=== PATIENT | male | born 1965 | race Caucasian/White ===

== ENCOUNTER 2017-11-19 16:43 | Emergency (ER) | payer OTHER ==
[~2017-11-19] VITALS: Ht 175.3 cm; Wt 81.6 kg
--- OUTSIDE RECORDS SUMMARY | 2017-11-19 16:46 | XMS REPORT | Clinical Summary ---
Author Author [facility] Address Unknown Phone Unavailable Care Team Providers Care Wire Strander Name Role Phone Asked, Pcp PCP Unavailable Allergies No Known Allergies Current Medications Prescription Sig. Disp. Refills Start End Date Status Date ibuprofen (ADVIL,MOTRIN) Take 200 mg by mouth Active 200 MG tablet every 6 (six) hours as needed for mild pain. traMADol (ULTRAM) 50 mg Take 1 tablet (50 mg 60 tablet 0 11/08/19 Active tablet total) by mouth every 4 18 19 (four) hours as needed for moderate pain. methocarbamol Take 1 tablet (750 mg 120 tablet 0 11/08/19 12/09/19 Active (ROBAXIN-750) 750 MG total) by mouth 4 (four) 18 18 tablet times a day for 30 days. naproxen (NAPROSYN) 500 Take 1 tablet (500 mg 60 tablet 0 11/14/19 11/14/19 Active MG tablet total) by mouth 2 (two) 18 19 times a day. cyclobenzaprine Take 1 tablet (10 mg 6 tablet 0 10/22/19 10/25/19 (FLEXERIL) 10 mg tablet total) by mouth 2 (two) 18 18 times a day as needed for muscle spasms for up to 3 days. acetaminophen-codeine Take 1-2 tablets by mouth 20 tablet 0 10/22/19 10/27/19 (TYLENOL WITH CODEINE #3) every 6 (six) hours as 18 18 300-30 mg per tablet needed for moderate pain for up to 5 days. CYCLOBENZAPRINE HCL Take by mouth. 11/07/19 Discontin (FLEXERIL ORAL) 18 ued predniSONE (DELTASONE) 10 Take 4 tablets (40 mg 16 tablet 0 11/07/19 11/11/19 mg tablet total) by mouth daily for 18 18 4 days. acetaminophen-codeine Take 1-2 tablets by mouth 20 tablet 0 11/07/19 11/12/19 (TYLENOL WITH CODEINE #3) every 6 (six) hours as 18 18 300-30 mg per tablet needed for moderate pain for up to 5 days. cyclobenzaprine Take 1 tablet (10 mg 9 tablet 0 11/07/19 11/10/19 (FLEXERIL) 10 mg tablet total) by mouth 2 (two) 18 18 times a day as needed for muscle spasms for up to 3 days. methylPREDNISolone Take 1 tablet (4 mg 21 tablet 0 11/08/19 Discontin (MEDROL DOSEPAK) 4 mg total) by mouth See Admin 18 18 ued tablet Instructions for 5 days. Use as directed by package instructions traMADol (ULTRAM) 50 mg Take 1 tablet (50 mg 60 tablet 0 11/08/19 Discontin tablet total) by mouth every 4 18 18 ued (four) hours as needed for moderate pain. methocarbamol Take 1 tablet (750 mg 120 tablet 0 11/08/19 11/08/19 Discontin (ROBAXIN-750) 750 MG total) by mouth 4 (four) 18 18 ued tablet times a day for 30 days. methylPREDNISolone Take 1 tablet (4 mg 21 tablet 0 11/08/19 (MEDROL DOSEPAK) 4 mg total) by mouth See Admin 18 18 tablet Instructions for 5 days. Use as directed by package instructions Active Problems Problem Noted Date Strain of lumbar region 11/08/2017 Thoracic myofascial strain 11/08/2017 Encounters Date Type Specialty Care Team Description 11/14/2017 Office Visit [facility] Gen Lynne MD Strain of lumbar region, subsequent encounter (Primary Dx); Thoracic myofascial strain, subsequent encounter 11/08/2017 Office Visit [facility] Gen Wallace MD Strain of lumbar region, initial encounter (Primary Dx); Thoracic myofascial strain, initial encounter 11/07/2017 Emergency Emergency Medicine Jamari Ibarra MD Bilateral low back pain with sciatica, sciatica laterality unspecified, unspecified chronicity (Primary Dx) 10/22/2017 Emergency Emergency Medicine Joni Metz MD Strain of lumbar region, initial encounter (Primary Dx) after 11/18/2016 Social History Tobacco Use Types Packs/Day Years Used Date Current Every Day Smoker Smokeless Tobacco: Never Used Alcohol Use Drinks/Week oz/Week Comments No Sex Assigned at Date Recorded Not on file Last Filed Vital Signs Vital Sign Reading Time Taken Blood Pressure 155/72 11/07/2017 12:39 PM [employer] Pulse 62 11/07/2017 12:39 PM [employer] Temperature 36.8 C (98.2 F) 11/07/2017 12:39 PM [employer] Respiratory Rate 16 11/07/2017 12:39 PM [employer] Oxygen Saturation 100% 11/07/2017 12:39 PM [employer] Inhaled Oxygen - - Concentration Weight 81.6 kg (180 lb) 11/07/2017 12:38 PM [employer] Height 175.3 cm (5' 9") 11/07/2017 12:38 PM [employer] Body Mass Index 26.58 11/07/2017 12:38 PM [employer] Plan of Treatment Date Type Specialty Care Team Description 11/21/2017 Office Visit [facility] Gen Lynne MD [facility] [address] [place] [id number] Health Maintenance Due Date Last Done Comments COLONOSCOPY 2013 INFLUENZA VACCINE 05/08/2017 Procedures Procedure Name Priority Date/Time Associated Diagnosis Comments TX INJECT TRIGGER POINT, Routine 11/08/2017 Strain of lumbar region, Results for this 1 OR 2 10:07 AM [employer] initial encounter procedure are in the Thoracic myofascial results section. strain, initial encounter after 11/18/2016 Results * INJECT TRIGGER POINT, 1 OR 2 (11/08/2017 10:07 AM) Narrative Gen Lynne MD 11/08/2017 10:07 AM 1 or 2 Trigger Point Injection Date/Time: 11/08/2017 8:54 AM Performed by: GEN LYNNE Authorized by: GEN LYNNE Consent: Consent obtained:Verbal Consent given by:Patient Risks discussed:Allergic reaction Indications: Indications:Pain relief Location: Therapeutic Trigger Point Injection:Single/multiple trigger point(s): 1-2 muscle groups Location: gluteal Gluteal location injected:L gluteal Left side: Left Gluteal Medications administered: 30 mg keTOROlac 60 mg/2 mL Pre-procedure details: Neurovascular status: intact Skin preparation:Alcohol Post-procedure details: Patient tolerance of procedure:Tolerated well, no immediate complications * XR Lumbar Spine Complete 4+ Vw (10/22/2017 10:15 AM) Specimen Performing Laboratory [address] [id number] Narrative EXAMINATION:XR LUMBAR SPINE COMPLETE 4VW CLINICAL HISTORY:back pain hx strain at work COMPARISON:None. FINDINGS: 5 view examination of the lumbar spine performed. 5 lumbar vertebrae identified. Lordosis well-maintained. No compressive abnormality. No spondylolysis or spondylolisthesis. Minimal disc space narrowing L4-5. Minimal bilateral facet hypertrophy L4-5 and L5-S1. Slight anterolateral osteophytes L3-4. IMPRESSION: Mild degenerative changes in the lumbar spine No acute abnormality [id number] Procedure Note Interface, Radiology Results Incoming 10/22/2017 10:33 AM [employer] EXAMINATION: XR LUMBAR SPINE COMPLETE 4 VW CLINICAL HISTORY: back pain hx strain at work COMPARISON: None. FINDINGS: 5 view examination of the lumbar spine performed. 5 lumbar vertebrae identified. Lordosis well-maintained. No compressive abnormality. No spondylolysis or spondylolisthesis. Minimal disc space narrowing L4-5. Minimal bilateral facet hypertrophy L4-5 and L5-S1. Slight anterolateral osteophytes L3-4. IMPRESSION: Mild degenerative changes in the lumbar spine No acute abnormality [id number] * XR Thoracic Spine 3 Vw (10/22/2017 10:15 AM) Specimen Performing Laboratory [address] [address] Narrative PROCEDURE:XR THORACIC SPINE 3 VW CLINICAL HISTORY:strain at back COMPARISON:None. TECHNIQUE: 3 views of the thoracic spine. FINDINGS: The vertebral body heights and alignment are preserved. There is no acute fracture or subluxation. There are no osseous lesions present. Small Schmorl nodes seen within the endplates. The pedicles and posterior neural arch elements are normal. Mild S-shaped scoliotic deviation of the thoracic spine. Anterior spondylosis and mild loss of disc height. IMPRESSION: 1. There is no acute fracture or subluxation. 2. Mild degenerative changes seen within the thoracic spine S-shaped scoliotic deviation. [id number] Procedure Note Interface, Radiology Results Incoming 10/22/2017 10:31 AM [employer] PROCEDURE: XR THORACIC SPINE 3 VW CLINICAL HISTORY: strain at back COMPARISON: None. TECHNIQUE: 3 views of the thoracic spine. FINDINGS: The vertebral body heights and alignment are preserved. There is no acute fracture or subluxation. There are no osseous lesions present. Small Schmorl nodes seen within the endplates. The pedicles and posterior neural arch elements are normal. Mild S-shaped scoliotic deviation of the thoracic spine. Anterior spondylosis and mild loss of disc height. IMPRESSION: 1. There is no acute fracture or subluxation. 2. Mild degenerative changes seen within the thoracic spine S-shaped scoliotic deviation. [id number] * Urinalysis screen and microscopy, with reflex to culture (10/22/2017 10:05 AM) Component Value Ref Range Specimen site Clean catch Color, UA Straw Appearance, UA Clear Specific gravity, UA 1.008 1.001 - 1.035 pH, UA 5.0 5.0 - 8.5 Protein, UA Negative Negative Glucose, UA Negative Negative Ketones, UA Negative Negative Bilirubin, UA Negative Negative Blood, UA Negative Negative Nitrite, UA Negative Negative Urobilinogen, UA Negative <2.0 Leukocyte esterase, UA Negative Negative Round epithelial cells, Few 0 - 1 /HPF UA WBC, UA 0-5 0 - 1 /HPF RBC, UA 0-5 0 - 1 /HPF Bacteria, UA None seen None seen Yeast, UA None seen Yeast with pseudohyphae, None seen UA Specimen Performing Laboratory Urine [facility] DEPARTMENT OF PATHOLOGY AND GENOMIC MEDICINE [id number] [place] [address] * Urine culture (10/22/2017 10:05 AM) Component Value Ref Range Urine culture SEE COMMENTComment: Bacteriuria screen negative. Specimen Performing Laboratory Urine [facility] DEPARTMENT OF PATHOLOGY AND GENOMIC MEDICINE [address] [place] [address] after 11/18/2016 Insurance Payer Benefit Subscriber ID Type Phone Address Plan / Group AETNA AETNA PPO xxxxxxxxxx PPO OPEN CHOICE
[2017-11-19] MEDS ORDERED: TAMIFLU75 MG PO (18:59)
[2017-11-19 19:56] VITALS: BP 117/78
== END 2017-11-19 19:57 | disposition home or self-care (01) ==
LOC: ER 16:43
DX: R50.9 Fever, unspecified (principal); R05 Cough; J11.1 Influenza due to unidentified influenza virus with other respiratory manifestations
CPT/HCPCS: 87400; 99283